=== PATIENT | female | born 1940 | race Caucasian/White ===

== ENCOUNTER 2017-09-29 11:38 | Observation (INO) | payer OTHER, BC ==
[~2017-09-29] VITALS: Ht 157.5 cm; Wt 62.5 kg
[~2017-09-29 11:38] MED LIST: ATORVASTATIN CA20 MG PO; DULERA 200 MCG/13 GM IH; LEVOTHYROXINE137 MCG PO; LOSARTAN POTASS50 MG PO; MONTELUKAST SOD10 MG PO
[2017-09-29 12:35] LABS: BASOPHIL COUNT 0.1 K/uL (0-0.1); EOSINOPHIL (%) 1.5 % (0-5); EOSINOPHIL COUNT 0.2 K/uL (0-0.3); HEMATOCRIT 36.8 % (36.0-46.0); IMMATURE GRANULOCYTE (%) 0.7 % (0.0-0.7); IMMATURE GRANULOCYTE COUNT 0.1 K/uL; INSTRUMENT ABS NEUTROPHIL CT 7.3 K/uL; LYMPHOCYTE COUNT 2.8 K/uL (1.0-2.8); MCH 31.2 PG (29.0-34.0); MCHC 32.3 G/DL (30.0-36.0); MCV 96.3 FL (83-99); MEAN PLAT.VOLUME 9.2 uM^3 (9.5-12.4); MONOCYTE (%) 11.1 % (3-12); MONOCYTE COUNT 1.3 K/uL (0-0.8); NEUTROPHIL (%) 62.4 % (45-76); NEUTROPHIL COUNT 7.3 K/uL (1.8-6.4); PLATELET COUNT 304 K/uL (156-360); RBC DIS.WIDTH-CV 14.6 % (11.8-14.6); RBC DIS.WIDTH-SD 51.8 % (39-53); RED BLOOD COUNT 3.82 M/uL (3.80-5.20); WHITE BLOOD COUNT 11.7 K/uL (4.1-10.2)
[2017-09-29 12:42] LABS: PROTHROMBIN TIME 11.5 SEC (10.2-12.9)
[2017-09-29 12:44] LABS: PTT 30.2 SEC (25-37)
[2017-09-29 12:46] LABS: CHLORIDE 104 mEq/L (99-109); POTASSIUM 4.6 mEq/L (3.7-5.4); SODIUM 138 mEq/L (136-147)
[2017-09-29 12:47] LABS: GLUCOSE 101 mg/dL (70-99)
[2017-09-29 12:49] LABS: ANION GAP 11 MEQ/L (2-14)
[2017-09-29 12:51] LABS: GFR ESTIMATE (CALCULATED) 52 mL/min/
[2017-09-29 12:52] LABS: UREA NITROGEN (BUN) 32 mg/dL (9-23)
[2017-09-29 12:56] LABS: TROP-I INTERPRETATION NEGATIVE; TROPONIN-I 0.03 ng/mL (0.0-0.30)
[2017-09-29] MEDS ORDERED: VALSARTAN40 MG PO (12:56)
[2017-09-29] MEDS ORDERED: SYMBICORT60 INHALAT IH (12:57)
[2017-09-29] MEDS ORDERED: AMLODIPINE BES2.5 MG PO (12:58)
[2017-09-29 15:51] LABS: ADD MIUA? YES; BILIRUBIN NEGATIVE; BLOOD SMALL; COLOR YELLOW ((YELLOW)); GLUCOSE (STRIP) NEGATIVE; KETONES NEGATIVE; LEUKOCYTES LARGE; NITRITE NEGATIVE; PROTEIN (STRIP) NEGATIVE; SPECIFIC GRAVITY 1.021 (1.000-1.030); UROBILINOGEN 0.2 MG/DL (0.2-1.0)
[2017-09-29] MEDS ORDERED: LEVOTHYROXINE100 MCG PO (15:56)
[2017-09-29 16:13] LABS: BACTERIA RARE /HPF; EPITHELIAL CELLS 1+ /HPF; MUCUS TRACE /LPF; UCUL ADDED? YES; WHITE BLOOD CELLS TNTC /HPF (0-5)
[2017-09-29 17:51] VITALS: BP 190/101
[2017-09-29 19:00] VITALS: BP 98/66
[2017-09-29 19:06] LABS: TROP-I INTERPRETATION NEGATIVE; TROPONIN-I 0.03 ng/mL (0.0-0.30)
[2017-09-29 23:45] VITALS: BP 122/67
[2017-09-30 01:11] LABS: TROP-I INTERPRETATION NEGATIVE; TROPONIN-I 0.03 ng/mL (0.0-0.30)
[2017-09-30 03:50] VITALS: BP 125/84
[2017-09-30 07:10] LABS: BASOPHIL COUNT 0.1 K/uL (0-0.1); EOSINOPHIL (%) 2.4 % (0-5); EOSINOPHIL COUNT 0.3 K/uL (0-0.3); HEMATOCRIT 34.5 % (36.0-46.0); IMMATURE GRANULOCYTE (%) 0.7 % (0.0-0.7); IMMATURE GRANULOCYTE COUNT 0.1 K/uL; INSTRUMENT ABS NEUTROPHIL CT 6.9 K/uL; LYMPHOCYTE COUNT 2.5 K/uL (1.0-2.8); MCH 31.7 PG (29.0-34.0); MCHC 32.8 G/DL (30.0-36.0); MCV 96.9 FL (83-99); MEAN PLAT.VOLUME 10.4 uM^3 (9.5-12.4); MONOCYTE (%) 14.3 % (3-12); MONOCYTE COUNT 1.7 K/uL (0-0.8); NEUTROPHIL (%) 59.9 % (45-76); NEUTROPHIL COUNT 6.9 K/uL (1.8-6.4); PLATELET COUNT 251 K/uL (156-360); RBC DIS.WIDTH-CV 14.7 % (11.8-14.6); RBC DIS.WIDTH-SD 52.1 % (39-53); RED BLOOD COUNT 3.56 M/uL (3.80-5.20); WHITE BLOOD COUNT 11.6 K/uL (4.1-10.2)
[2017-09-30 07:28] LABS: TROP-I INTERPRETATION NEGATIVE; TROPONIN-I 0.03 ng/mL (0.0-0.30)
[2017-09-30 07:33] VITALS: BP 133/47
[2017-09-30 07:54] LABS: ALKALINE PHOSPHATASE 58 IU/L (3-129); ANION GAP 9 MEQ/L (2-14); CHLORIDE 107 MEQ/L (99-109); GFR ESTIMATE (CALCULATED) 58 mL/min/; GLUCOSE 98 mg/dL (70-99); POTASSIUM 4.5 MEQ/L (3.7-5.4); SAMPLE HEMOLYSIS CHECK 0; SAMPLE ICTERIC CHECK 0; SAMPLE LIPEMIA CHECK 0; SODIUM 142 MEQ/L (136-147); TOTAL BILIRUBIN 0.6 MG/DL (0.0-1.0); UREA NITROGEN (BUN) 22 mg/dL (9-23)
[2017-09-30] MEDS ORDERED: CEFTIN500 MG PO (10:47)
[2017-09-30] MEDS ORDERED: CARDIZEM CD,CA180 MG PO (10:47)
[2017-09-30] MEDS ORDERED: XARELTO15 MG PO (10:47)
== END 2017-09-30 12:17 | disposition home or self-care (01) ==
LOC: EME 11:38 → 4EAST 16:05 → EDOF 16:05 → 4EAST 16:05 → ENRESERV 16:06 → 4EAST 17:57
PROVIDERS: Emergency Medicine; Hospitalist
DX: I48.91 Unspecified atrial fibrillation (principal); I47.1 Supraventricular tachycardia; Z98.890 Other specified postprocedural states; E03.9 Hypothyroidism, unspecified; Z85.72 Personal history of non-Hodgkin lymphomas; I10 Essential (primary) hypertension; E78.5 Hyperlipidemia, unspecified; J02.9 Acute pharyngitis, unspecified; Z87.440 Personal history of urinary (tract) infections; Z90.81 Acquired absence of spleen
CPT/HCPCS: 71010; 71275; 80048; 80053; 81003; 84439; 84443; 84481; 84484; 85025; 85379; 85610; 85730; 87086; 87651 90; 93005; 94640; 94640 76; 99281; 99285; G0378; J0696; J1160; J7030; J7050